=== PATIENT | female | born 2000 | race Caucasian/White ===

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

== ENCOUNTER 2019-01-17 18:09 | Emergency (ER) | payer MEDICAID ==
[2017-11-12 13:09] VITALS: BMI 36.3
--- NOTE | 2019-01-17 18:15 | ER Report ---
History and Physical Time Seen By MD: 18:12 HPI/ROS CHIEF COMPLAINT: Worried I may have rabies HISTORY OF PRESENT ILLNESS: 18-year-old female presents ambulatory to the ER concerned about exposure to rabies. Patient states she tried to save a pigeon with a broken wing. She managed to capture it, and then began to treat it. It packed her several times but did not break the skin. The pigeon then he came quite agitated and then arrested. She attempted to give [id number]. Patient states the pigeon had puffy eyes, but did not otherwise appear ill. I explained that rodents and birds generally don't contract rabies. Patient has a 2nd complaint. She has significant hearing loss and is signing to communicate. This is new for her. Patient states she fell down the stairs 3 weeks ago at which time she has sustained loss of consciousness for 30 minutes. She however did not seek medical treatment. After coming to. She notes that she's had loss of hearing for 3 weeks. She notes no visual changes, no changes in coordination or muscle strength. She she's had no vomiting to suggest head injury or concussion. Patient is on numerous medications for pseudoseizures and mood control. Allergies: Coded Allergies: aripiprazole (Verified Allergy, Severe, SEIZURE, 12/10/18) morphine (Verified Allergy, Intermediate, VOMITING, 12/10/18) fish derived (Verified Allergy, Unknown, 12/10/18) aspirin (Verified Adverse Reaction, Intermediate, vomiting, 12/10/18) Home Meds Reported Medications Propranolol Hcl (PROPRANOLOL HCL) 10 Mg Tablet, 10 MG PO QDAY PRN for SEIZURE 09/07/18 Quetiapine Fumarate (QUETIAPINE FUMARATE) 50 Mg Tablet, 50 MG PO BID 09/07/18 Oxcarbazepine (OXCARBAZEPINE) 150 Mg Tablet, 150 MG PO BID 07/22/18 Levothyroxine Sodium (LEVOTHYROXINE SODIUM) 50 Mcg Tablet, 50 MCG PO QDAY, TAB 03/20/18 Epinephrine (EPIPEN 2-MERY) 0.3 Mg/0.3 Ml Pen.injctr, 0.3 MG IM 03/20/18 Albuterol Sulfate (VENTOLIN HFA) 18 Gm Inh, 1-2 PUFF INH 3-4XD, INH 08/20/16 Past Medical/Surgical History Past medical history: Pseudoseizures, reactive airways disease, multiple head injuries, hypertension. Seasonal allergies, hypothyroidism, anaphylaxis Past surgical history wisdom tooth extraction, right leg fracture Reviewed Nurses Notes: Yes Old Medical Records Reviewed: Yes Hx Smoking: No Smoking Status: Never Smoker Exposure to Second Hand Smoke?: No Hx Substance Use Disorder: No Hx Alcohol Use: Yes Constitutional Vital Sign - Last 24 Hours 01/17/19 18:19 Temp 99.1 Pulse 97 Resp 20 B/P (MAP) 140/76 Pulse Ox 94 O2 Delivery Room Air Physical Exam General appearance: Alert no distress. Vital signs stable, afebrile, pulse ox normal HEENT: TMs normal, eyes without redness or injection. There is no mattering or discharge. The oropharynx is without redness or exudate, mucous members are moist Respiratory: Chest is non tender, lungs are clear to auscultation. Cardiac: Regular rate and rhythm Extremities: Examination of her hands reveal no open wounds from where the page and pecked at her hands. Neuro alert and oriented 3, cranial nerves II through XII intact, excluding 8, motor 5/5 all groups, sensory intact to light touch 4, cerebellum grossly intact DIFFERENTIAL DIAGNOSIS: After history and physical exam differential diagnosis was considered for? Rabies exposure. Additionally,head injury including but not limited to concussion, skull fracture, intraparenchymal contusion, subarachnoid, subdural and epidural hematoma. Medical Decision Making Data Points Laboratory Hematology Test 01/17/19 18:24 Urine HCG, Qualitative Negative (NEGATIVE) Chemistry Test 01/17/19 18:24 Urine HCG, Qualitative Negative (NEGATIVE) Urinalysis Test 01/17/19 18:24 Urine HCG, Qualitative Negative (NEGATIVE) EKG/Imaging Imaging Results: CT scan of the head without contrast was obtained. The results of the study are no acute traumatic findings, sinusitis noted, see report. The study was read by the radiologist. I viewed the images myself on the PACS system. ED Course/Re-evaluation ED Course Patient was admitted to an examination room. H&P was done. The differential diagnosis was considered. Patient with exposure to a pigeon which would unlikely have rabies. This was explained to the patient. She is reassured that she does not need a rabies vaccine series. Patient has a 2nd complaint. She reports that she fell down a flight of stairs approximately 3 weeks ago. She was unconscious for 30 minutes. When she came to she had hearing loss. She has not sought medical treatment until today. She has learned to sign. She is reading sign from our staff. Patient is requesting an MRI scan of her brain. I offered her a CT scan unable to get an emergent MRI performed today. A urinalysis was sent for a test which was negative. Patient was sent for CT scan which was unremarkable. Suddenly she abruptly left the emergency department stating she did not feel well. She discontinued care before the results of the CT were obtained and could be related to her. Decision to Disposition Date: January 17, 2019 Decision to Disposition Time: 18:51 Depart Departure Latest Vital Signs Vital Signs Date Time Temp Pulse Resp B/P (MAP) Pulse Ox O2 Delivery O2 Flow Rate FiO2 01/17/19 18:19 99.1 97 20 140/76 94 Room Air Impression: Primary Impression: Animal bite of hand Additional Impressions: Head injury Hearing loss Condition: Stable Disposition: AGAINST MED ADV / DISCONT CARE Referrals: ANTHONY HORVATH JR, MD Patient Instructions: Head Injury (ED), Hearing Loss (ED) Additional Instructions: Follow-up with your primary care doctor You may also follow-up with Dr. Anthony Horvath ENT about your hearing loss. Problem Qualifiers Primary Impression: Animal bite of hand Encounter type: initial encounter Laterality: unspecified laterality Qualified Codes: S61.459A - Open bite of unspecified hand, initial encounter Additional Impressions: Head injury Encounter type: initial encounter Qualified Codes: S09.90XA - Unspecified injury of head, initial encounter Hearing loss Hearing loss type: unspecified Laterality: unspecified laterality Qualified Codes: H91.90 - Unspecified hearing loss, unspecified ear RAMY GRAHAM DO January 17, 2019 18:15
[2019-01-17 18:19] VITALS: BP 140/76
--- NOTE | 2019-01-17 19:11 | RADIOLOGY IMAGING REPORT ---
FACILITY: [facility] PATIENT NAME: Fransisca Condon : 2000 MR: [id number] V: [id number] EXAM DATE: ORDERING PHYSICIAN: RAMY GRAHAM [place]CHN[place] [facility] [place]: [place]ansisca C[place] : 2000 Visit/Account:[id number] Date of Sevice: 01/17/2019 CT BRAIN NO CONTRAST HISTORY: fell down stairs 3 weeks ago hearing loss, LOC x 30 mi COMPARISON STUDIES: There is 2018. TECHNIQUE: Contiguous axial images were obtained from the skull base to the vertex. One of the following dose optimization techniques was utilized in the performance of this exam: Autom ated exposure control; adjustment of the mA and/or kV according to the patient's size; or use of an i terative reconstruction technique. Specific details can be referenced in the facility's radiology C T exam operational policy. FINDINGS: Hemorrhage: Negative Ventricles / sulci / fissures: Negative Masses / midline shift: Negative White matter and sparks matter: No findings of lucency. Extra-axial spaces: Negative Bones/skull base: No findings of a fracture in the skull base. No fracture in the right or left masto id air cells. The middle ear cavities are unremarkable. Visualized mastoid air cells / paranasal sinuses: Mucosal thickening involving the left maxillary sin us. Nasal septum deviates to the left. The frontal sinuses are hypoplastic. Scalp and soft tissues: Negative. Vascular/other findings: Negative. IMPRESSION: 1. Unremarkable CT scan of the brain. No findings of a mass or bleed. No findings of an abnormality i nvolving the right or left temporal bone. 2. Chronic mucosal thickening in the left maxillary sinus. The nasal septum deviates to the left. Report Dictated By: Jadiel Barton MD at 01/17/2019 7:03 PM Report E-Signed By: Jadiel Barton MD at 01/17/2019 7:07 PM WSN:[id number]
[2019-02-08] MEDS ORDERED: CITA-145 PO (15:01)
[2019-02-08] MEDS ORDERED: LEVO50TA86 PO (15:01)
[2019-02-08] MEDS ORDERED: OXCA600T39 PO (15:01)
[2019-02-08] MEDS ORDERED: HYDR25CA13 PO (15:01)
== END 2019-01-17 19:00 | disposition left against medical advice (07) ==
LOC: ER 18:28
DX: S69.82XA Other specified injuries of left wrist, hand and finger(s), initial encounter (principal); S69.81XA Other specified injuries of right wrist, hand and finger(s), initial encounter; W61.91XA Bitten by other birds, initial encounter; S09.90XA Unspecified injury of head, initial encounter; H91.93 Unspecified hearing loss, bilateral
CPT/HCPCS: 70450; 81025; 99284

== ENCOUNTER 2019-02-03 09:28 | Emergency (ER) | payer MEDICAID ==
[2017-11-12 13:09] VITALS: Wt 99.6 kg
[2019-02-03 09:33] VITALS: BP 113/54
--- NOTE | 2019-02-03 09:33 | ER Report ---
History and Physical Time Seen By MD: 09:33 HPI/ROS This is a 18-year-old female who is well known to the emergency department secondary to frequent visits. She has a long-standing history of behavioral health admissions and multiple diagnosis. She presents to the emergency department today complaining of pain in her right forearm. She states that she was standing on a TV stand cleaning and her grandmother's house. She fell off of the TV stand and hit her right arm on the furniture on the way to the ground. She is complaining of pain in her right forearm as well as an abrasion. She did not hit her head. No loss of consciousness. She landed on her feet, but states she hit her arm on the way down. She denies any other pain other than in her right forearm. Remainder of the 14 system rev: Yes Allergies: Coded Allergies: aripiprazole (Verified Allergy, Severe, SEIZURE, 02/03/19) morphine (Verified Allergy, Intermediate, VOMITING, 02/03/19) fish derived (Verified Allergy, Unknown, 02/03/19) aspirin (Verified Adverse Reaction, Intermediate, vomiting, 02/03/19) Home Meds Reported Medications Propranolol Hcl (PROPRANOLOL HCL) 10 Mg Tablet, 10 MG PO QDAY PRN for SEIZURE 09/07/18 Quetiapine Fumarate (QUETIAPINE FUMARATE) 50 Mg Tablet, 50 MG PO BID 09/07/18 Oxcarbazepine (OXCARBAZEPINE) 150 Mg Tablet, 150 MG PO BID 07/22/18 Levothyroxine Sodium (LEVOTHYROXINE SODIUM) 50 Mcg Tablet, 50 MCG PO QDAY, TAB 03/20/18 Epinephrine (EPIPEN 2-MERY) 0.3 Mg/0.3 Ml Pen.injctr, 0.3 MG IM 03/20/18 Albuterol Sulfate (VENTOLIN HFA) 18 Gm Inh, 1-2 PUFF INH 3-4XD, INH 08/20/16 Reviewed Nurses Notes: Yes Old Medical Records Reviewed: Yes Hx Smoking: No Smoking Status: Never Smoker Exposure to Second Hand Smoke?: No Hx Substance Use Disorder: No Hx Alcohol Use: Yes Constitutional Vital Sign - Last 24 Hours 02/03/19 09:33 Temp 98.7 Pulse 94 Resp 20 B/P (MAP) 113/54 Pulse Ox 98 O2 Delivery Room Air Physical Exam General Appearance: The patient is alert, has no immediate need for airway protection and no current signs of toxicity. Eyes: Pupils equal and round no injection. Respiratory: Chest is non tender, lungs are clear to auscultation. Cardiac: regular rate and rhythm Neck: Neck is supple and non tender. Extremities have full range of motion> TTP of the right elbow, forearm, and wrist Skin: multiple scars to right forearm from previous cutting behavior. Now also with superficial abrasion to right forearm Medical Decision Making ED Course/Re-evaluation ED Course Minor fall from a TV stand. Pain and abrasion in the patient's right forearm. No obvious deformity other than a superficial abrasion. X-rays of the right elbow forearm and wrist show no evidence of fracture. Pulses are symmetric and intact as well. The superficial abrasion was treated with bacitracin and Curlex was placed around the wound. The patient will follow up with her PCM Decision to Disposition Date: February 03, 2019 Decision to Disposition Time: 11:17 Depart Departure Latest Vital Signs Vital Signs Date Time Temp Pulse Resp B/P (MAP) Pulse Ox O2 Delivery O2 Flow Rate FiO2 02/03/19 09:33 98.7 94 20 113/54 98 Room Air Impression: Primary Impression: Abrasion forearm Additional Impression: Contusion Condition: Improved Disposition: HOME OR SELF-CARE Patient Instructions: Abrasion (ED) Problem Qualifiers Additional Impression: Contusion Encounter type: initial encounter Contusion area: forearm Laterality: right Qualified Codes: S50.11XA - Contusion of right forearm, initial encounter BIBI MENDOZA MD February 03, 2019 09:33
--- NOTE | 2019-02-03 10:54 | RADIOLOGY IMAGING REPORT ---
[place] [facility] [place] NAME: Fransisca Condon : 2000 MR: [id number] V: [id number] EXAM DATE: ORDERING PHYSICIAN: BIBI MENDOZA TECHNOLOGIST: Location: [facility] Patient: Fransisca Condon : 2000 Visit/Account:[id number] Date of Sevice: 02/03/2019 Exam type: ELBOW 2 VIEW RIGHT History: fall off tv stand Comparison: Right wrist right forearm performed today. Findings: Two views of the right elbow were submitted. Study is limited as the could not bend the elbow to a 9 0 degree angle. No gross evidence of acute fracture or dislocation seen IMPRESSION: 1. No gross evidence of acute fracture dislocation of the right elbow Report Dictated By: Lisbet Rich MD at 02/03/2019 10:46 AM Report E-Signed By: Lisbet Rich MD at 02/03/2019 10:48 AM WSN:[email or web address]
--- NOTE | 2019-02-03 10:55 | RADIOLOGY IMAGING REPORT ---
[facility] PATIENT NAME: Fransisca Condon : 2000 MR: [id number] V: [id number] EXAM DATE: ORDERING PHYSICIAN: BIBI MENDOZA TECHNOLOGIST: Location: [facility] [place] Patient: Fransisca Condon : 2000 Visit/Account:[id number] Date of Sevice: 02/03/2019 Exam type: XR WRIST 2 VWS RT History: fall off tv stand Comparison: February 05, 2018 Two views the right wrist were submitted. Findings: The PA and the oblique view of the right wrist were submitted demonstrating no gross evidence of acut e fracture or dislocation.. No radiopaque soft tissue foreign bodies present IMPRESSION: 1. No gross evidence of acute fracture or dislocation involving the right wrist Report Dictated By: Lisbet Rich MD at 02/03/2019 10:48 AM Report E-Signed By: Lisbet Rich MD at 02/03/2019 10:51 AM WSN:[email or web address]
--- NOTE | 2019-02-03 10:56 | RADIOLOGY IMAGING REPORT ---
FAC[place] [facility] [place] PATIENT NAME: Fransisca Condon : 2000 MR: [id number] V: [id number] EXAM DATE: ORDERING PHYSICIAN: BIBI MENDOZA [place]CHN[place]: [place] [facility] [place]ansisca C[place] : 2000 Visit/Account:[id number] Date of Sevice: 02/03/2019 Exam type: FOREARM RIGHT History: fall off tv stand Comparison: Right elbow performed today. Findings: Two views of the right forearm are submitted. There is no gross evidence of acute fracture-dislocati on involving the right forearm. There is mild soft tissue prominence along the volar aspect IMPRESSION: 1. No gross evidence of acute fracture-dislocation involving the right forearm. This mild soft tiss ue prominence along the volar aspect of the right forearm Report Dictated By: Lisbet Rich MD at 02/03/2019 10:51 AM Report E-Signed By: Lisbet Rich MD at 02/03/2019 10:52 AM WSN:[id number]
[2019-02-08] MEDS ORDERED: OXCA600T39 PO (15:01)
[2019-02-08] MEDS ORDERED: LEVO50TA86 PO (15:01)
[2019-02-08] MEDS ORDERED: CITA-145 PO (15:01)
[2019-02-08] MEDS ORDERED: HYDR25CA13 PO (15:01)
== END 2019-02-03 11:27 | disposition home or self-care (01) ==
LOC: ER 09:45
DX: S50.11XA Contusion of right forearm, initial encounter (principal); W17.89XA Other fall from one level to another, initial encounter; Y93.E9 Activity, other interior property and clothing maintenance; Z79.899 Other long term (current) drug therapy
CPT/HCPCS: 99284

== ENCOUNTER 2019-03-04 02:21 | Emergency (ER) | payer MEDICAID ==
[2017-11-12 13:09] VITALS: Wt 103.0 kg
[~2019-03-04 02:21] MED LIST changes: -HYDR100C9 PO
--- NOTE | 2019-03-04 02:46 | ER Report ---
History and Physical Time Seen By MD: 02:20 Hx. of Stated Complaint: PATIENT STATES THAT AROUND 2300 THE PATIENT WAS WATCHING A SHOW WITH BOYFRIEND; PATIENT STATES THAT THEN SHE WOKE UP IN A POOL OF BLOOD AND STARTED SCREEMING; PATIENT STATES THAT SHE MUST OF HAD A FLASH BACK FOR THE REASON WHY SHE DID THIS; PATIENT STATES THAT SHE DOES NOT HAVE SUICIDAL THOUGHTS NOR WANTED TO HURT HER SELF STATES THAT HER LIFE IS "GOING WELL NOW" HPI/ROS CHIEF COMPLAINT: Wrist laceration HISTORY OF PRESENT ILLNESS: 18-year-old female is brought in by police and EMS after being found in the bathroom with a knife surrounded by a pool of blood. Patient reports that though she has a history of depression and PTSD, she is living with her boyfriend and likely is going very well. She states they were watching a show tonight then went to bed. She states she felt absolutely fine before going to bed. She states the next thing she knew she woke up with a pool of blood in the kitchen sharp knife, and realized that she must have cut herself. She is sure that no one else did it to her but she does not recall doing this whatsoever. Examiner's also noted other smaller cuts on her right chest wall and left shoulder that patient claims she did not realize she had done either. Boyfriend corroborates the story. They called EMS at which point police and EMS responded. His placed a tourniquet her left shoulder. EMS placed quick clot and and [place] citizen bandage and she was transported to the emergency department. Pt denies drugs, etoh use REVIEW OF SYSTEMS: Constitutional: No fever, no chills. Eyes: no blurred vision ENT: No sore throat. Cardiovascular: No chest pain, no palpitations. Respiratory: No cough, no shortness of breath. Gastrointestinal: No abdominal pain, no vomiting. Genitourinary: no dysuria Musculoskeletal: No back pain. Skin: superficial cutting as above, left wrist laceration as above Neurological: no headache Remainder of the 14 system rev: Yes Allergies: Coded Allergies: aripiprazole (Verified Allergy, Severe, SEIZURE, 02/03/19) morphine (Verified Allergy, Intermediate, VOMITING, 02/03/19) fish derived (Verified Allergy, Unknown, 02/03/19) aspirin (Verified Adverse Reaction, Intermediate, vomiting, 02/03/19) Home Meds Reported Medications Hydroxyzine Pamoate (HYDROXYZINE PAMOATE) 100 Mg Capsule, 100 MG PO, CAPSULE 03/04/19 Levothyroxine Sodium (LEVOTHYROXINE SODIUM) 50 Mcg Tablet, 50 MCG PO QDAY, TAB 02/08/19 Citalopram Hydrobromide (CITALOPRAM HBR) 20 Mg Tablet, 20 MG PO HS, #5 TAB 02/08/19 Oxcarbazepine (OXCARBAZEPINE) 600 Mg Tablet, 900 MG PO BID 02/08/19 Discontinued Reported Medications Hydroxyzine Pamoate (HYDROXYZINE PAMOATE) 25 Mg Capsule, 25 MG PO TID PRN for anxiety, CAPSULE 02/08/19 Reviewed Nurses Notes: Yes Hx Smoking: No Smoking Status: Never Smoker Exposure to Second Hand Smoke?: No Hx Substance Use Disorder: No Hx Alcohol Use: Yes Constitutional Vital Sign - Last 24 Hours 03/04/19 03/04/19 03/04/19 03/04/19 02:23 02:25 02:45 03:06 Temp 97.7 Pulse 100 Resp 15 B/P (MAP) 114/67 (83) 144/67 100/66 (77) 113/67 (82) Pulse Ox 96 O2 Delivery Room Air 03/04/19 03/04/19 03/04/19 03:20 03:21 03:51 Pulse 99 86 Resp 14 27 B/P (MAP) 112/71 (85) Pulse Ox 94 Physical Exam General Appearance: The patient is alert, has no immediate need for airway protection and no signs of toxicity. Pt arrives with CAT tourniquet in place left upper arm, [place] citizen bandage and quick clot in place left wrist, dusky discoloration of left hand. Eyes: Pupils equal and round no pallor or injection. ENT, Mouth: Mucous membranes are moist. Respiratory: There are no retractions, lungs are clear to auscultation. Cardiovascular: Regular rate and rhythm. no m/r/g Gastrointestinal: Abdomen is soft and non tender, no masses, bowel sounds normal. Neurological: alert, no e/o intoxication, moves all ext Skin: superficial cutting on r upper chest, left upper arm, 2.5cm horizontal laceration left volar forearm Musculoskeletal: Extremities are nontender, nonswollen and have full range of motion; left hand; cr < 2, nl sensation throughout, 5/5 flex/ext DIFFERENTIAL DIAGNOSIS: After history and physical exam differential diagnosis was considered for suicide attempt, artery/nerve/tendon damage, or other emergent result of incident. Medical Decision Making Data Points Result Diagram: 03/04/19 0354 03/04/19 0253 Laboratory Hematology Test 03/04/19 00:00 03/04/19 02:53 03/04/19 03:54 Urine Color Colorless Urine Clarity Clear Urine pH 6.0 pH (4.8-9.5) Urine Specific [place] 1.002 Urine Protein Negative mg/dL (NEGATIVE) Urine Glucose (UA) Negative mg/dL (NEGATIVE) Urine Ketones Negative mg/dL (NEGATIVE) Urine Blood Moderate (NEGATIVE) Urine Nitrite Negative (NEGATIVE) Urine Bilirubin Negative (NEGATIVE) Urine Urobilinogen Negative mg/dL (0.2-1.9) Urine Leukocyte Esterase Negative (NEGATIVE) Urine RBC None /HPF (0-2/HPF) Urine WBC None /HPF (0-5/HPF) Urine Squamous Epithelial Cells None /LPF (</=FEW) Urine Bacteria Negative /HPF (NONE-FEW) Urine Mucus None /HPF (NONE-FEW) Urine HCG, Qualitative Negative (NEGATIVE) Urine Opiates Screen Negative Urine Barbiturates Screen Negative Ur Tricyclic Antidepressants Screen Negative Urine Phencyclidine Screen Negative Urine Amphetamines Screen Negative Urine Benzodiazepines Screen Negative Urine Cocaine Screen Negative Urine Cannabinoids Screen Negative Sodium Level 141 mmol/L (137-145) Potassium Level 3.8 mmol/L (3.5-5.0) Chloride Level 106 mmol/L (98-107) Carbon Dioxide Level 22 mmol/L (22-31) Blood Urea Nitrogen 5 mg/dl (7-18) Creatinine 0.50 mg/dl (0.52-1.04) Glomerular Filtration Rate Calc > 60.0 Random Glucose 114 mg/dl (75-110) Calcium Level 8.9 mg/dl (8.4-10.2) Total Bilirubin 0.3 mg/dl (0.2-1.3) Aspartate Amino Transf (AST/SGOT) 19 U/L (0-35) Alanine Aminotransferase (ALT/SGPT) 29 U/L (0-56) Alkaline Phosphatase 87 U/L (0-126) Total Protein 6.6 g/dl (6.3-8.2) Albumin 3.7 g/dl (3.5-5.0) Salicylates Level < 10 mg/L Salicylate Last Dose Date unk Acetaminophen Level < 10 ug/ml Serum Alcohol 73 mg/dl Red Blood Count 4.39 M/uL (4.17-5.56) Mean Corpuscular Volume 80.6 fL (80.0-96.0) Mean Corpuscular Hemoglobin 27.8 pg (26.0-33.0) Mean Corpuscular Hemoglobin Concent 34.5 g/dL (32.0-36.0) Red Cell Distribution Width 14.1 % (11.5-14.5) Mean Platelet Volume 8.1 fL (7.2-11.1) Neutrophils (%) (Auto) 54.4 % (39.4-72.5) Lymphocytes (%) (Auto) 35.0 % (17.6-49.6) Monocytes (%) (Auto) 5.7 % (4.1-12.4) Eosinophils (%) (Auto) 4.1 % (0.4-6.7) Basophils (%) (Auto) 0.8 % (0.3-1.4) Nucleated RBC Relative Count (auto) 0.1 /100WBC Neutrophils # (Auto) 4.9 K/uL (2.0-7.4) Lymphocytes # (Auto) 3.1 K/uL (1.3-3.6) Monocytes # (Auto) 0.5 K/uL (0.3-1.0) Eosinophils # (Auto) 0.4 K/uL (0.0-0.5) Basophils # (Auto) 0.1 K/uL (0.0-0.1) Nucleated RBC Absolute Count (auto) 0.01 K/uL Chemistry Test 03/04/19 00:00 03/04/19 02:53 03/04/19 03:54 Urine Color Colorless Urine Clarity Clear Urine pH 6.0 pH (4.8-9.5) Urine Specific [place] 1.002 Urine Protein Negative mg/dL (NEGATIVE) Urine Glucose (UA) Negative mg/dL (NEGATIVE) Urine Ketones Negative mg/dL (NEGATIVE) Urine Blood Moderate (NEGATIVE) Urine Nitrite Negative (NEGATIVE) Urine Bilirubin Negative (NEGATIVE) Urine Urobilinogen Negative mg/dL (0.2-1.9) Urine Leukocyte Esterase Negative (NEGATIVE) Urine RBC None /HPF (0-2/HPF) Urine WBC None /HPF (0-5/HPF) Urine Squamous Epithelial Cells None /LPF (</=FEW) Urine Bacteria Negative /HPF (NONE-FEW) Urine Mucus None /HPF (NONE-FEW) Urine HCG, Qualitative Negative (NEGATIVE) Urine Opiates Screen Negative Urine Barbiturates Screen Negative Ur Tricyclic Antidepressants Screen Negative Urine Phencyclidine Screen Negative Urine Amphetamines Screen Negative Urine Benzodiazepines Screen Negative Urine Cocaine Screen Negative Urine Cannabinoids Screen Negative Glomerular Filtration Rate Calc > 60.0 Calcium Level 8.9 mg/dl (8.4-10.2) Total Bilirubin 0.3 mg/dl (0.2-1.3) Aspartate Amino Transf (AST/SGOT) 19 U/L (0-35) Alanine Aminotransferase (ALT/SGPT) 29 U/L (0-56) Alkaline Phosphatase 87 U/L (0-126) Total Protein 6.6 g/dl (6.3-8.2) Albumin 3.7 g/dl (3.5-5.0) Salicylates Level < 10 mg/L Salicylate Last Dose Date unk Acetaminophen Level < 10 ug/ml Serum Alcohol 73 mg/dl White Blood Count 8.9 k/uL (4.5-11.0) Red Blood Count 4.39 M/uL (4.17-5.56) Hemoglobin 12.2 g/dL (12.0-16.0) Hematocrit 35.4 % (34.0-47.0) Mean Corpuscular Volume 80.6 fL (80.0-96.0) Mean Corpuscular Hemoglobin 27.8 pg (26.0-33.0) Mean Corpuscular Hemoglobin Concent 34.5 g/dL (32.0-36.0) Red Cell Distribution Width 14.1 % (11.5-14.5) Platelet Count 276 K/uL (150-450) Mean Platelet Volume 8.1 fL (7.2-11.1) Neutrophils (%) (Auto) 54.4 % (39.4-72.5) Lymphocytes (%) (Auto) 35.0 % (17.6-49.6) Monocytes (%) (Auto) 5.7 % (4.1-12.4) Eosinophils (%) (Auto) 4.1 % (0.4-6.7) Basophils (%) (Auto) 0.8 % (0.3-1.4) Nucleated RBC Relative Count (auto) 0.1 /100WBC Neutrophils # (Auto) 4.9 K/uL (2.0-7.4) Lymphocytes # (Auto) 3.1 K/uL (1.3-3.6) Monocytes # (Auto) 0.5 K/uL (0.3-1.0) Eosinophils # (Auto) 0.4 K/uL (0.0-0.5) Basophils # (Auto) 0.1 K/uL (0.0-0.1) Nucleated RBC Absolute Count (auto) 0.01 K/uL Toxicology Test 03/04/19 00:00 03/04/19 02:53 Urine Opiates Screen Negative Urine Barbiturates Screen Negative Ur Tricyclic Antidepressants Screen Negative Urine Phencyclidine Screen Negative Urine Amphetamines Screen Negative Urine Benzodiazepines Screen Negative Urine Cocaine Screen Negative Urine Cannabinoids Screen Negative Salicylates Level < 10 mg/L Salicylate Last Dose Date unk Acetaminophen Level < 10 ug/ml Serum Alcohol 73 mg/dl Urinalysis Test 03/04/19 00:00 Urine Color Colorless Urine Clarity Clear Urine pH 6.0 pH (4.8-9.5) Urine Specific [place] 1.002 Urine Protein Negative mg/dL (NEGATIVE) Urine Glucose (UA) Negative mg/dL (NEGATIVE) Urine Ketones Negative mg/dL (NEGATIVE) Urine Blood Moderate (NEGATIVE) Urine Nitrite Negative (NEGATIVE) Urine Bilirubin Negative (NEGATIVE) Urine Urobilinogen Negative mg/dL (0.2-1.9) Urine Leukocyte Esterase Negative (NEGATIVE) Urine RBC None /HPF (0-2/HPF) Urine WBC None /HPF (0-5/HPF) Urine Squamous Epithelial Cells None /LPF (</=FEW) Urine Bacteria Negative /HPF (NONE-FEW) Urine Mucus None /HPF (NONE-FEW) Urine HCG, Qualitative Negative (NEGATIVE) EKG/Imaging EKG Interpretation 12 lead EKG: Rhythm: normal sinus rhythm Oran: normal QRS: normal ST segments: normal flipped T waves V1-4 Monitor Interpretation: Normal Sinus Rhythm ED Course/Re-evaluation ED Course 18 f presents with left wrist laceration. Tourniquet initially in place; I removed for further evaluation. Once I removed this and [place] citizen bandage, wrist laceration is clotted and not actively bleeding. Laceration is 2.5 cm length, and upon exploration, depth is only through subq tissue but without tendon exposure. I evaluated artery/tendons under ultrasound and positivey identified radial, ulnar artery, median nerve, and intrinsic hand tendons under us distal to laceration, without e/o disruption. Pt has nl sensation, 5/5 flexion, extension, opposition in hand. I irrigated and sutured. Police place her on 72 hr hold; pt and boyfriend have corroborating stories and she denies intentional harm. evaluates in ED. Decision to Disposition Date: Mar 04, 2019 Decision to Disposition Time: 04:10 Depart Departure Latest Vital Signs Vital Signs Date Time Temp Pulse Resp B/P (MAP) Pulse Ox O2 Delivery O2 Flow Rate FiO2 03/04/19 03:51 86 27 03/04/19 03:21 94 03/04/19 03:20 112/71 (85) 03/04/19 02:25 97.7 Room Air Impression: Primary Impression: Wrist laceration Condition: Improved Disposition: HOME OR SELF-CARE Referrals: LILLI MARTINI MD (PCP) 2 Days Patient Instructions: Laceration (ED) Additional Instructions: As we discussed, please return immediately if you have concerns about your safety, for signs of infection or any other concerns. Follow up with your counselor as we discussed, take your medications as prescribed. Follow up for suture removal in 8 days. Change your bandage in 2 days, then apply bacitracin daily and keep bandaged every day. Problem Qualifiers Primary Impression: Wrist laceration Encounter type: initial encounter Laterality: left Qualified Codes: S61.512A - Laceration without foreign body of left wrist, initial encounter LINWOOD MENDOZA MD Mar 04, 2019 02:46
[2019-03-04] MEDS ORDERED: HYDR100C9 PO (03:14)
--- NOTE | 2019-03-04 03:35 | EKG ---
FACILITY: [facility] PATIENT NAME: AMRITA GUERRERO : [id number] MR: [id number] V: [id number] EXAM DATE: ORDERING PHYSICIAN: LINWOOD MENDOZA TECHNOLOGIST: TOMASA Test Reason : TRAUMA Blood Pressure : / mmHG Vent. Rate : 098 BPM Atrial Rate : 098 BPM P-R Int : 136 ms QRS Dur : 100 ms QT Int : 356 ms P-R-T Axes : 059 039 026 degrees QTc Int : 454 ms Normal sinus rhythm with sinus arrhythmia T inversion consistent with ant/sep ischemia vs normal variant, but is new from previous Confirmed by GEM PROCTOR ([id number]) on 03/04/2019 6:31:20 AM Referred By: Confirmed By:GEM PROCTOR
[2019-03-04 04:06] LABS: PLATELET COUNT, AUTOMATED 276 K/uL (150-450)
[2019-03-04 04:12] VITALS: BP 101/47
[2019-03-04] MEDS ORDERED: EMS LR(*) 1000 ML BAG 1,000 ML IV ONE (04:45)
== END 2019-03-04 04:19 | disposition home or self-care (01) ==
LOC: ER 02:44
DX: S61.512A Laceration without foreign body of left wrist, initial encounter (principal); I49.8 Other specified cardiac arrhythmias
CPT/HCPCS: 12001; 80305; 81001; 81025; 84443; 85025; 93005; 99283; G0480; 80320; 80329; 82040; 82247; 82310; 82374; 82435; 82565; 82947; 84075; 84132; 84155; 84295; 84450; 84460; 84520

== ENCOUNTER → 2019-03-04 | Outpatient (CLI) | payer MEDICAID ==
[2017-11-12 13:09] VITALS: BMI 36.3
[~2019-03-04] MED LIST changes: +CITA-145 PO; +HYDR100C9 PO; +OXCA600T39 PO
== END ==
LOC: AMB 01:52
PROVIDERS: ATTEND Nurse Practitioner
DX: S61.512A Laceration without foreign body of left wrist, initial encounter (principal); X78.1XXA Intentional self-harm by knife, initial encounter
CPT/HCPCS: A0425; A0429

== ENCOUNTER 2019-03-07 23:03 | Emergency (ER) | payer MEDICAID ==
[2017-11-12 13:09] VITALS: BMI 36.3
[~2019-03-07 23:03] MED LIST changes: +HYDR100C9 PO
--- NOTE | 2019-03-07 23:05 | ER Report ---
History and Physical Time Seen By MD: 23:02 HPI/ROS CHIEF COMPLAINT: Reopened stitches HISTORY OF PRESENT ILLNESS: Patient is a 18-year-old female here with complaints of bleeding from a prior suture site which was placed on Wednesday. Patient reports that she had a seizure and opened stitches accidentally. Patient is alert and o riented at time of evaluation with no further lacerations. REVIEW OF SYSTEMS: Constitutional: No fever, no chills. Musculoskeletal: No acute bony abnormality Skin: Mild bleeding from prior laceration site, loose stitches present Neurological: Neurovascular exam intact Allergies: Coded Allergies: aripiprazole (Verified Allergy, Severe, SEIZURE, 03/04/19) morphine (Verified Allergy, Intermediate, VOMITING, 03/04/19) fish derived (Verified Allergy, Unknown, 03/04/19) aspirin (Verified Adverse Reaction, Intermediate, vomiting, 03/04/19) Home Meds Reported Medications Hydroxyzine Pamoate (HYDROXYZINE PAMOATE) 100 Mg Capsule, 100 MG PO, CAPSULE 03/04/19 Levothyroxine Sodium (LEVOTHYROXINE SODIUM) 50 Mcg Tablet, 50 MCG PO QDAY, TAB 02/08/19 Citalopram Hydrobromide (CITALOPRAM HBR) 20 Mg Tablet, 20 MG PO HS, #5 TAB 02/08/19 Oxcarbazepine (OXCARBAZEPINE) 600 Mg Tablet, 900 MG PO BID 02/08/19 Discontinued Reported Medications Hydroxyzine Pamoate (HYDROXYZINE PAMOATE) 25 Mg Capsule, 25 MG PO TID PRN for anxiety, CAPSULE 02/08/19 Hx Smoking: No Smoking Status: Never Smoker Exposure to Second Hand Smoke?: No Hx Substance Use Disorder: No Hx Alcohol Use: Yes Constitutional Vital Sign - Last 24 Hours 03/07/19 03/07/19 03/07/19 03/07/19 23:10 23:18 23:30 23:33 Temp 98.3 Pulse 78 93 91 Resp 19 B/P (MAP) 139/68 111/67 (82) Pulse Ox 93 93 95 O2 Delivery Room Air Physical Exam General Appearance: The patient is alert, has no immediate need for airway protection and no signs of toxicity. No acute distress Neurological: Neurovascular exam intact Skin: Prior laceration site with mild bleeding at the wrist and loose sutures apparently ripped by the patient Musculoskeletal: No acute bony abnormality identified DIFFERENTIAL DIAGNOSIS: After history and physical exam differential diagnosis was considered for reopened laceration, sutures ripped Medical Decision Making ED Course/Re-evaluation ED Course Patient is a 18-year-old female here with complaints of reopening of a laceration during with the patient reports was a seizure shortly prior to arrival. Patient is neurovascularly intact at time of evaluation. Sutures are placed on Wednesday. Vascular structures were intact at that time. Site was reclosed using interrupted sutures after local anesthetic was applied. 3 sutures approximated the laceration well. Return precautions provided. Patient tolerated procedure well. Procedure Laceration repair: Site was anesthetized using approximately 4 mL of 1% lidocaine with epinephrine. Laceration was closed using 3 4-0 Ethilon sutures. Patient tolerated procedure well. Return precautions provided. Neurovascular exam was intact post procedure Decision to Disposition Date: Mar 07, 2019 Decision to Disposition Time: 23:30 Depart Departure Latest Vital Signs Vital Signs Date Time Temp Pulse Resp B/P (MAP) Pulse Ox O2 Delivery O2 Flow Rate FiO2 03/07/19 23:33 91 95 03/07/19 23:30 111/67 (82) 03/07/19 23:10 98.3 19 Room Air Impression: Primary Impression: Suture of skin wound Condition: Improved Disposition: HOME OR SELF-CARE Referrals: LILIL MARTINI MD (PCP) Patient Instructions: Laceration (ED) Additional Instructions: Please have your sutures removed in 7 days. Please return promptly if you develop infection, reopening of wound GIANLUCA PRUITT DO Mar 07, 2019 23:05
[2019-03-07 23:30] VITALS: BP 111/67
== END 2019-03-07 23:42 | disposition home or self-care (01) ==
LOC: ER 23:06
DX: S61.512A Laceration without foreign body of left wrist, initial encounter (principal)
CPT/HCPCS: 12002; 99282; L3908

== ENCOUNTER 2019-04-01 19:12 | Emergency (ER) | payer MEDICAID ==
[2017-11-12 13:09] VITALS: Wt 98.9 kg
[2019-04-01] MEDS ORDERED: DIPH-740 PO (19:24)
[2019-04-01] MEDS ORDERED: OXCA600T39 PO (19:24)
--- NOTE | 2019-04-01 19:27 | ER Report ---
History and Physical Time Seen By MD: 19:19 Hx. 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 HPI/ROS CHIEF COMPLAINT: Allergic reaction HISTORY OF PRESENT ILLNESS: This is a 18-year-old female who presents emergency department for an allergic reaction. 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 Patient arrives alert and oriented, she is in no distress at this time, she states that she's feeling better, however she does have some residual throat irritation but does not like her throat is closing off. She has no other complaints at this time. No fevers or chills. No chest pain. REVIEW OF SYSTEMS: Constitutional: No fever, no chills. Eyes: No discharge. ENT: No sore throat. Cardiovascular: No chest pain, no palpitations. Respiratory: As above. Gastrointestinal: No abdominal pain, no vomiting. Genitourinary: No hematuria. Musculoskeletal: No back pain. Skin: No rashes. Neurological: No headache. Allergies: Coded Allergies: aripiprazole (Verified Allergy, Severe, SEIZURE, 04/01/19) morphine (Verified Allergy, Intermediate, VOMITING, 04/01/19) fish derived (Verified Allergy, Unknown, 04/01/19) aspirin (Verified Adverse Reaction, Intermediate, vomiting, 04/01/19) Home Meds Active Scripts Prednisone (PREDNISONE) 20 Mg Tablet, 20 MG PO BID, #10 TAB Prov:ELIZABETH MORENO [employer]- 04/01/19 Reported Medications Diphenhydramine Hcl (BENADRYL) 25 Mg Capsule, 125 MG PO HS, CAPSULE 04/01/19 Oxcarbazepine (OXCARBAZEPINE) 600 Mg Tablet, 1.5 TAB PO HS 04/01/19 Levothyroxine Sodium (LEVOTHYROXINE SODIUM) 50 Mcg Tablet, 50 MCG PO QDAY, TAB 02/08/19 Discontinued Reported Medications Hydroxyzine Pamoate (HYDROXYZINE PAMOATE) 100 Mg Capsule, 100 MG PO, CAPSULE 03/04/19 Citalopram Hydrobromide (CITALOPRAM HBR) 20 Mg Tablet, 20 MG PO HS, #5 TAB 02/08/19 Oxcarbazepine (OXCARBAZEPINE) 600 Mg Tablet, 900 MG PO BID 02/08/19 Past Medical/Surgical History Patient has a past medical and surgical history of seizures, headaches, hypertension, irregular heartbeat, asthma, 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 Reviewed Nurses Notes: Yes Hx Smoking: No Smoking Status: Never Smoker Exposure to Second Hand Smoke?: No Hx Substance Use Disorder: No Hx Alcohol Use: Yes Constitutional Vital Sign - Last 24 Hours 04/01/19 04/01/19 04/01/19 04/01/19 19:13 19:18 19:27 19:30 Pulse 101 91 Resp 22 B/P (MAP) 118/55 (76) 118/55 123/57 (79) Pulse Ox 97 93 O2 Delivery Room Air 04/01/19 04/01/19 04/01/19 04/01/19 19:42 19:42 19:42 19:51 Pulse 99 101 91 Resp 16 16 Pulse Ox 96 95 O2 Delivery Room Air 04/01/19 04/01/19 04/01/19 20:00 20:12 20:17 Pulse 110 105 B/P (MAP) 113/55 (74) Pulse Ox 94 93 Physical Exam General Appearance: The patient is alert, has no immediate need for airway protection and no signs of toxicity. Eyes: Pupils equal and round no pallor or injection. ENT, Mouth: Mucous membranes are moist. Mild erythema to the posterior oropharynx. Respiratory: There are no retractions, lungs are clear to auscultation. Cardiovascular: Regular rate and rhythm. No murmurs, clicks or rubs Gastrointestinal: Abdomen is soft and non tender, no masses, bowel sounds normal. Neurological: Alert and oriented 4. Moving all extremities. Following commands. No focal neuro deficits. Skin: Warm and dry, no rashes. Musculoskeletal: Neck is supple non tender. Extremities are nontender, nonswollen and have full range of motion. DIFFERENTIAL DIAGNOSIS: After history and physical exam differential diagnosis was considered for allergic reaction. Medical Decision Making ED Course/Re-evaluation Clinical Indication for ER IV: Hydration, IV Access ED Course The patient was admitted to room. A history and physical were obtained. Differential diagnoses were considered. Patient was given 20 mg IV famotidine, 125 mg IV Solu-Medrol and a DuoNeb, patient states she is feeling much better, no apparent rebound from the initial epinephrine injection. Patient is requesting to go home. We did discuss keeping the EpiPen with her at all time, she will fill the prednisone prescription tomorrow and take the prednisone burst for the next 5 days. Patient has improved aeration. Patient had no other q uestions or concerns at this time and discharged home. Decision to Disposition Date: Apr 01, 2019 Decision to Disposition Time: 20:18 Depart Departure Latest Vital Signs Vital Signs Date Time Temp Pulse Resp B/P (MAP) Pulse Ox O2 Delivery O2 Flow Rate FiO2 04/01/19 20:17 105 93 04/01/19 20:00 113/55 (74) 04/01/19 19:51 16 04/01/19 19:42 Room Air Impression: Primary Impression: Allergic reaction Condition: Improved Disposition: HOME OR SELF-CARE Referrals: LILLI MARTINI MD (PCP) New Scripts Prednisone (PREDNISONE) 20 Mg Tablet 20 MG PO BID, #10 TAB Prov: ELIZABETH MORENO-ADAMS 04/01/19 Patient Instructions: General Allergic Reaction (ED) Additional Instructions: Please avoid working with fish. Take the steroids as prescribed. Follow-up with your primary care provider next week for reevaluation. Always keep your EpiPen with you. Drink plain water. Get plenty of rest. Return to the ER for any concerns or worsening symptoms. Problem Qualifiers Primary Impression: Allergic reaction Encounter type: initial encounter Qualified Codes: T78.40XA - Allergy, unspecified, initial encounter ELIZABETH MORENO-ADAMS Apr 01, 2019 19:27
[2019-04-01] MEDS ORDERED: ALBUTEROL/IPRATROPIUM 3 ML NEB NEB ONE (19:35)
[2019-04-01] MEDS ORDERED: FAMOTIDINE(*) 20MG/50ML PREMIX 50 ML IVPB ONE (19:35)
[2019-04-01] MEDS ORDERED: methylPREDNIS SUCC 125 MG/2ML IVP ONE (19:35)
[2019-04-01] MEDS ORDERED: PRED20TA6 PO (19:49)
[2019-04-01 20:00] VITALS: BP 113/55
== END 2019-04-01 20:29 | disposition home or self-care (01) ==
LOC: ER 19:15
DX: T78.40XA Allergy, unspecified, initial encounter (principal)
CPT/HCPCS: 94640; 96365; 96375; 99284; J2930; J7620

== ENCOUNTER → 2019-04-01 | Outpatient (CLI) | payer MEDICAID ==
[2017-11-12 13:09] VITALS: BMI 36.3
== END ==
LOC: AMB 18:47
PROVIDERS: ATTEND Nurse Practitioner
DX: T78.2XXA Anaphylactic shock, unspecified, initial encounter (principal)
CPT/HCPCS: A0425; A0427